=== PATIENT | male | born 1965 | race Caucasian/White ===

== ENCOUNTER 2017-09-29 17:05 | Emergency (ER) | payer SELFPAY ==
[2017-09-29] MEDS ORDERED: Lidocaine Viscous Sol 2% 15 ml UD Cup ONE (17:18)
[2017-09-29] MEDS ORDERED: Mag-Al Plus 1200 MG/1200 MG/120 MG/30 ML UDCUP ONE (17:18)
[2017-09-29 17:30] LABS: #Basophils 0.1 thou/uL (0.0-0.2); #Lymphocytes 3.2 thou/uL (1.20-3.40); #Monocytes 0.6 thou/uL (0.11-0.59); #Neutrophils 7.2 thou/uL (1.40-6.50); %Basophils 0.6 % (0.0-1.0); %Eosinophils 0.2 % (0.0-10.0); %Lymphocytes 29.2 % (21.0-51.0); %Monocytes 5.6 % (0.0-10.0); %Neutrophils 64.3 % (42.0-75.0); Hemoglobin 16.7 g/dL (14.0-18.0); Mean Corpuscular HGB CONC 33.2 g/dL (32.0-36.0); Mean Corpuscular Hemoglobin 27.7 pg (27.0-31.0); Mean Corpuscular Volume 83.6 fl (80.0-94.0); Mean Platelet Volume 8.6 fL (7.4-10.4); Platelet Count 238 thou/uL (130-400); RBC Distribution Width 12.9 % (11.5-14.5); Red Blood Cell (RBC) Count 6.01 mill/uL (4.70-6.10); White Blood Cell (WBC) Count 11.1 thou/uL (4.8-10.8)
[2017-09-29 17:44] LABS: ALT (SGPT) 122 U/L (8-55); AST (SGOT) 75 U/L (5-34); Albumin 4.5 g/dL (3.5-5.0); Alkaline Phosphatase 57 U/L (40-150); Anion Gap 16 mmol/L (10-20); BUN (Urea Nitrogen) 6 mg/dL (8.4-25.7); Bilirubin, Total 0.6 mg/dL (0.2-1.2); Calc. Creatinine Clearance 0 mL/min (70-130); Carbon Dioxide 25 mmol/L (22-29); Chloride 105 mmol/L (98-107); Estimated GFR-MDRD Greater than 90; Globulin 3.9 g/dL (2.4-3.5); Glucose 83 mg/dL (70-105); Lipase 56 U/L (8-78); Potassium 3.9 mmol/L (3.5-5.1); Protein, Total 8.4 g/dL (6.0-8.3); Sodium 142 mmol/L (136-145)
[2017-09-29 17:45] LABS: Troponin I Less than 0.010 ng/mL (< 0.028)
[2017-09-29] MEDS ORDERED: Famotidine 20 MG TAB ONE (17:54)
--- NOTE | 2017-09-29 20:53 | RAD ---
PORTABLE CHEST 09/29/17 An AP portable film at 1715 shows a normal sized heart and clear lungs. No infiltrate or effusion was seen. There is no vascular congestion or edema. The trachea is midline. IMPRESSION: No acute thoracic findings. POS: HOME
== END 2017-09-29 18:10 | disposition home or self-care (01) ==
LOC: BURERS 17:05
DX: R07.89 Other chest pain (principal); F17.220 Nicotine dependence, chewing tobacco, uncomplicated
CPT/HCPCS: 71045; 80053; 82553; 83690; 84484; 85025; 93005; 96360

== ENCOUNTER 2018-01-31 09:13 | Emergency (ER) | payer SELFPAY ==
[2018-01-31] MEDS ORDERED: Pantoprazole 40 MG VIAL ONE (09:33)
[2018-01-31 09:34] LABS: #Basophils 0.1 thou/uL (0.0-0.2); #Eosinphils 0.1 thou/uL (0.0-0.7); #Lymphocytes 2.8 thou/uL (1.20-3.40); #Monocytes 0.5 thou/uL (0.11-0.59); #Neutrophils 3.2 thou/uL (1.40-6.50); %Basophils 1.5 % (0.0-1.0); %Eosinophils 0.9 % (0.0-10.0); %Lymphocytes 42.6 % (21.0-51.0); %Monocytes 7.2 % (0.0-10.0); %Neutrophils 47.8 % (42.0-75.0); Hemoglobin 15.9 g/dL (14.0-18.0); Mean Corpuscular Hemoglobin 26.8 pg (27.0-31.0); Mean Corpuscular Volume 76.7 fL (78.0-98.0); Mean Platelet Volume 7.4 fL (7.4-10.4); Platelet Count 226 thou/uL (130-400); RBC Distribution Width 11.8 % (11.5-14.5); Red Blood Cell (RBC) Count 5.91 mill/uL (4.70-6.10); White Blood Cell (WBC) Count 6.6 thou/uL (4.8-10.8)
[2018-01-31 09:49] LABS: ALT (SGPT) 124 U/L (8-55); AST (SGOT) 78 U/L (5-34); Albumin 4.4 g/dL (3.5-5.0); Alkaline Phosphatase 54 U/L (40-150); Anion Gap 14 mmol/L (10-20); BUN (Urea Nitrogen) 9 mg/dL (8.4-25.7); Bilirubin, Total 0.7 mg/dL (0.2-1.2); Calc. Creatinine Clearance 0 mL/min (70-130); Calcium 9.9 mg/dL (7.8-10.44); Carbon Dioxide 25 mmol/L (22-29); Chloride 107 mmol/L (98-107); Estimated GFR-MDRD 88; Globulin 3.4 g/dL (2.4-3.5); Glucose 95 mg/dL (70-105); Protein, Total 7.8 g/dL (6.0-8.3); Sodium 142 mmol/L (136-145)
[2018-01-31 09:52] LABS: CKMB 1.6 ng/mL (0-6.6); Troponin I Less than 0.010 ng/mL (< 0.028)
[2018-01-31 12:46] LABS: Troponin I Less than 0.010 ng/mL (< 0.028)
--- NOTE | 2018-01-31 19:58 | RAD ---
AP PORTABLE CHEST: 01/31/2018 0915 HOURS COMPARISON: 09/29/2017 FINDINGS: The heart is normal in size. The lungs are clear. No acute infiltrate or effusion is seen. Vascula r structures show no congestion. Trachea is midline. IMPRESSION: No acute finding. POS: HOME
== END 2018-01-31 12:58 | disposition home or self-care (01) ==
LOC: BURERS 09:13
DX: K21.9 Gastro-esophageal reflux disease without esophagitis (principal); F17.220 Nicotine dependence, chewing tobacco, uncomplicated
CPT/HCPCS: 36415; 71045; 80053; 82553; 84484; 85025; 93005; 96365; C9113